=== PATIENT | female | born 1955 | race Caucasian/White ===

== ENCOUNTER 2018-09-02 11:16 | Day surgery (SDC) | payer OTHER ==
[~2018-09-02 11:16] MED LIST: SOD CHLORIDE 0.9% 1,000 ML IV
== END 2018-09-02 12:45 | disposition home or self-care (01) ==
LOC: SDS 11:16
DX: I35.0 Nonrheumatic aortic (valve) stenosis (principal); Z53.8 Procedure and treatment not carried out for other reasons; R50.9 Fever, unspecified; R05 Cough
CPT/HCPCS: 93005

== ENCOUNTER 2018-09-23 11:10 | Day surgery (SDC) | payer OTHER ==
[2018-09-23 13:31] LABS: ADD MAN DIFF? NO
[2018-09-23 13:33] LABS: WHITE BLOOD COUNT 5.3 10^3/ul (4.8-10.8)
[2018-09-23 13:33] LABS: ABNORMAL IP MESSAGE 1; BASOPHILS % 0.4 % (0.0-2.0); EOSINOPHILS # 0.2 10^3/ul (0.0-0.5); EOSINOPHILS % 3.8 % (0.0-7.0); HEMATOCRIT 34.5 % (37.0-47.0); HEMOGLOBIN 11.1 g/dl (12.0-16.0); LYMPHOCYTES # 1.5 10^3/ul (0.8-2.9); LYMPHOCYTES % 27.6 % (15.0-51.0); MEAN CORPUSCULAR HEMOGLOBIN 30.3 pg (29.0-33.0); MEAN CORPUSCULAR HGB CONC 32.2 g/dl (32.0-37.0); MEAN CORPUSCULAR VOLUME 94.3 fl (82.0-101.0); MEAN PLATELET VOLUME 13.6 fl (7.4-10.4); MONOCYTE # 0.3 10^3/ul (0.3-0.9); MONOCYTES % 5.8 % (0.0-11.0); NEUTROPHIL # 3.3 10^3/ul (1.6-7.5); PLATELET COUNT 107 10^3/UL (140-415); POSITIVE DIFF @See below; RED BLOOD COUNT 3.66 10^6/ul (4.20-5.40); RED CELL DISTRIBUTION WIDTH 14.3 % (11.5-14.5)
[2018-09-23 13:49] LABS: ANION GAP 10 (5-13); BLOOD UREA NITROGEN 16 mg/dl (7-20); CALCIUM 9.2 mg/dl (8.4-10.2); CARBON DIOXIDE 30 mmol/L (21-31); CHLORIDE 104 mmol/L (97-110); CREATININE 0.62 mg/dl (0.44-1.00); Estimated GFR > 60 mL/min (>60); GLUCOSE 107 mg/dl (70-220); POTASSIUM 3.8 mmol/L (3.5-5.1); SODIUM 144 mmol/L (135-144)
[2018-09-23 13:52] LABS: INR 0.87; PROTIME 11.9 Sec (11.9-14.9); PT RATIO 0.9
[2018-09-23] MEDS ORDERED: IODIXANOL LOCM 100 ML BTL (15:26)
[2018-09-23] MEDS ORDERED: HEPARIN 1000 UNITS/ML 10 ML INJ (15:26)
[2018-09-23] MEDS ORDERED: LIDOCAINE 1% (MDV) 20 ML INJ (15:26)
[2018-09-23] MEDS ORDERED: NITROGLYCERIN (IC) 100 MCG/ML INJ (15:26)
[2018-09-23] MEDS ORDERED: VERAPAMIL 5 MG INJ (15:26)
[2018-09-23] MEDS ORDERED: FENTAnyl 50 MCG/ML VIAL (15:32)
[2018-09-23] MEDS ORDERED: MIDAZOLAM 1 MG/ML 2 ML INJ (15:32)
[2018-09-23] MEDS: SOD CHLORIDE 0.9% 1,000 ML IV (16:37)
== END 2018-09-23 18:18 | disposition home or self-care (01) ==
LOC: CCL 11:10 → SDS 11:10 → CCL 18:18
DX: I35.0 Nonrheumatic aortic (valve) stenosis (principal)
CPT/HCPCS: 80048; 85025; 85610; 93005; 93454